=== PATIENT | male | born 1985 | race Caucasian/White ===

== ENCOUNTER 2016-07-17 21:21 | Emergency (ER) | payer OTHER ==
--- NOTE | ~2016-07-17 | EKG ---
PATIENT: MILENA MILLER UNIT #: [id number] Ventricular Rate: 85 BPM Atrial Rate: 85 BPM P-R Interval: 156 ms QRS Duration: 94 ms Q-T Interval: 330 ms QTC Calculation(Bezet): 392 ms P [place]: 69 degrees Calculated R [place]: 78 degrees Calculated T [place]: 50 degrees Diagnosis Line: Normal sinus rhythm Diagnosis Line: Biatrial enlargement Diagnosis Line: RSR' or QR pattern in V1 suggests right Diagnosis Line: ventricular conduction delay Diagnosis Line: Abnormal ECG Diagnosis Line: When compared with ECG of 05-FEB-2012 15:26, Diagnosis Line: Vent. rate has increased BY 36 BPM Diagnosis Line: Confirmed by MILENA MCMANUS MD ([id number]) on 07/30/2016 Diagnosis Line: 11:46:09 AM INTERPRETING MD: YONATHAN NELSON
--- NOTE | ~2016-07-17 | CR72 ---
[facility] A Service of [facility] & [facility] / [facility] RADIOLOGY TEXT RESULTS PATIENT: MILENA MILLER LOCATION: SED : [birth year] UNIT #: [id number] AGE: [address]: Mariajose Warner MD SEX: M ORDER DR: [id number] [place] [id number] [id number] E MR#: [id number] Acc #: [id number] NAME: MILENA MILLER : 1985 SEX: M STUDY DATE/TIME: 07/17/2016 21:28 UNIT: SED ROOM: STUDY DESCRIPTION: CR Chest Single View Portable Attending Physician: Mariajose Warner M.D. Ordering Physician: Mariajose Warner M.D. Primary Care Physician: Stanley Martins M.D. MEDICAL IMAGING REPORT This report is preliminary unless electronic signature is present. EXAM Portable chest, 07/17. INDICATIONS Shortness of air, heart racing, weakness and dizziness and palpitations for several hours. COMPARISON 04/12/2016 FINDINGS A portable view of the chest was obtained. The heart size and vascularity are normal. The lungs are clear. The bones are unremarkable. IMPRESSION No active disease. STAT * RESULT Dictated by... Zaid Lange M.D. THIS IS AN ELECTRONICALLY VERIFIED REPORT Zaid Lange M.D. at 07/18/2016 8:04 PM FEL/leanne TD: 07/18/2016 13:43 JOB #: [id number] MEDICAL IMAGING REPORT Page 1 of 1
[~2016-07-17 21:21] MED LIST: ACID REDUCER75 M1 PO; ADDERALL PO; ALBUTEROL17 GM INH; CIPRO PO; CORTISPORIN EY AS; DEBROX OTIC DRO15 ML AS; FLEXERIL10 MG PO; HYDROCODON-ACE1 EAC7 PO; IBUPROFEN PO; MOTRIN600 M1 PO; PERCOCET5/325 PO; PHENERGAN25 MG PO; PREDNISONE PO; PROTONIX PO; TOPAMAX200 MG; ULTRAM PO; ZYRTEC; ZYRTEC-D T1 TAB.SR1 PO
[2016-07-17 21:33] LABS: BASOPHIL% 0.6 % (0-2.5); EOSINOPHIL# 0.1 X10e3 (0-0.7); EOSINOPHIL% 1.4 % (0.0-7.0); HEMATOCRIT 47.8 % (38.0-50.0); HEMOGLOBIN 16.3 gm/dL (13.0-16.0); LYMPHOCYTE# 1.7 X10e3 (1.0-3.5); LYMPHOCYTE% 31.1 % (17.0-45.0); MEAN CELL VOLUME 88.3 FL (83-96); MEAN CORPUSCULAR HEMOGLOBIN 30.1 PG (28-34); MEAN PLATELET VOLUME 8.1 FL (6.5-11.5); MONOCYTE# 0.5 X10e3 (0-1.0); MONOCYTE% 9.1 % (3.0-12.0); NEUTROPHIL# 3.2 X10e3 (1.5-7.1); NEUTROPHIL% 57.8 % (40-75); PLATELET COUNT 158 X10e3 (140-420); RED BLOOD COUNT 5.41 X10e (3.90-5.60); RED CELL DISTRIBUTION WIDTH 13.8 % (11.0-15.5); WHITE BLOOD COUNT 5.6 X10e3 (4.0-10.5)
[2016-07-17 21:38] LABS: DIFF IND NO
[2016-07-17 21:48] LABS: POC - CKMB <1.0 ng/mL (0.0-7.9); POC - TROPONIN <0.05 ng/mL (<=0.05)
[2016-07-17 21:52] LABS: BUN/CREATININE RATIO 13.84; CREATININE SERUM 1.3 mg/dL (0.6-1.4); GLOM FILT RATE Estimated 72.7 mL/min (>60); POTASSIUM 3.7 mmol/L (3.5-5.1)
[2016-07-17 22:51] LABS: AMPHETAMINE NEG (NEG); BARBITURATES NEG (NEG); BENZODIAZEPINES NEG (NEG); COCAINE NEG (NEG); MARIJUANA NEG (NEG); OPIATES NEG (NEG); TRICYCLIC ANTIDEPRESSANTS NEG (NEG); U METHADONE NEG (NEG)
== END 2016-07-18 00:26 | disposition home or self-care (01) ==
LOC: SED 21:21
PROVIDERS: Emergency Medicine
DX: J20.9 Acute bronchitis, unspecified (principal); Z88.8 Allergy status to other drugs, medicaments and biological substances
CPT/HCPCS: 36415; 71010; 80048; 80307; 82553; 84484; 85025; 93005; 94640; 96361; 96374; 99284; J2930